=== PATIENT | male | born 1940 | race Caucasian/White ===

== ENCOUNTER 2023-09-07 13:17 | Emergency (ER) | payer OTHER, SELFPAY ==
[2023-09-07 13:29] VITALS: BP 153/98
[2023-09-07 17:40] VITALS: BP 154/99
--- NOTE | 2023-09-07 17:45 | ED.GENMED ---
History of Present Illness
<Josette Mcfadden MD - Last Filed: 09/07/23 17:47>
General
Chief Complaint: DVT/Possible Blood Clot
Time Seen by Provider: 09/07/23 16:26
Travel History
Have you had any contact with someone who has COVID-19?: No
Do you have any symptoms of coronavirus? Fever > 100 degrees, chills, cough, shortness of breath, sore throat, loss of taste or smell, muscle aches, or headache?: No
<Scooby Rodriguez PA-C - Last Filed: 09/07/23 18:51>
History of Present Illness
History of Present Illness:
83-year-old male with history of dementia, atrial fibrillation on Eliquis, and GERD presents to the emergency department for evaluation of left leg swelling and 'coldness' beginning today. Was advised to come to the emergency department by his
palliative care team. Patient does have chronic bilateral lower extremity edema but the left side appears to be worse according to family. History cannot be obtained from the patient due to his dementia. He denies any pain at this time
Past History
<Josette Mcfadden MD - Last Filed: 09/07/23 17:47>
Past History
ED Past Medical History: Other (A. fib, hypertension, spinal stenosis, scoliosis)
ED Past Surgical History: Other (Hernia)
<Scooby Rodriguez PA-C - Last Filed: 09/07/23 18:51>
Review of Systems
Allergies reviewed?: Yes
All Other Systems: ROS reviewed and negative except as documented in HPI and ROS
<Scooby Rodriguez PA-C - Last Filed: 09/07/23 18:51>
Physical Exam
Physical Exam:
GEN: Well appearing, NAD, WDWN
HEENT: Oral mucosa moist, no scleral icterus
Cardiac: Regular rate
Lung: No respiratory distress, no tachypnea
MSK: Bilateral lower extremity edema is noted, somewhat increased on the left. Dorsalis pedis pulses are 2+ bilaterally, posterior tibialis pulses strong by Doppler bilaterally, no pallor. Left lower extremity sensation is intact in all ghosh
Skin: Good color, no pallor or jaundice, no rashes
Neuro: AO x3, moves all extremities freely
Psych: Calm, cooperative
Course
<Josette Mcfadden MD - Last Filed: 09/07/23 17:47>
Orders/Labs/Results
Orders:
Orders
09/07/23 13:28
Periph Venous Lwr Ext Left US [US Periph Venous LOWER Ext LT] Urgent
Comment:
Reason For Exam: r/o dvt
09/07/23 17:35
Basic Metabolic Panel Urgent
Abnormal Lab Results
09/07/23
17:35
Sodium 134 L mmol/L
(135-145)
Calcium 8.2 L mg/dl
(8.4-10.2)
09/07/23 17:35
Vital Signs
Initial and Last Documented VS:
Initial Vital Signs
Temp Pulse Resp BP Pulse Ox
97.9 F 79 19 153/98 97
09/07/23 13:29 09/07/23 13:29 09/07/23 13:29 09/07/23 13:29 09/07/23 13:29
Last Documented Vital Signs
Temp Pulse Resp BP Pulse Ox
97.9 F 84 16 154/99 97
09/07/23 13:29 09/07/23 17:40 09/07/23 17:40 09/07/23 17:40 09/07/23 17:40
<Scooby Rodriguez PA-C - Last Filed: 09/07/23 18:51>
Orders/Labs/Results
Orders:
Orders
09/07/23 13:28
Periph Venous Lwr Ext Left US [US Periph Venous LOWER Ext LT] Urgent
Comment:
Reason For Exam: r/o dvt
09/07/23 17:35
Basic Metabolic Panel Urgent
Abnormal Lab Results
09/07/23
17:35
Sodium 134 L mmol/L
(135-145)
Calcium 8.2 L mg/dl
(8.4-10.2)
09/07/23 17:35
Vital Signs
Initial and Last Documented VS:
Initial Vital Signs
Temp Pulse Resp BP Pulse Ox
97.9 F 79 19 153/98 97
09/07/23 13:29 09/07/23 13:29 09/07/23 13:29 09/07/23 13:29 09/07/23 13:29
Last Documented Vital Signs
Temp Pulse Resp BP Pulse Ox
97.9 F 84 16 154/99 97
09/07/23 13:29 09/07/23 17:40 09/07/23 17:40 09/07/23 17:40 09/07/23 17:40
<Scooby Rodriguez PA-C - Last Filed: 09/07/23 18:51>
MDM/Problems Addressed
MDM/Problems Addressed:
Vascular ultrasound unremarkable. The patient has no clinical symptoms of arterial occlusion or peripheral arterial disease as he has no pain, no claudication, and strong dorsalis pedis pulses. Suspect the symptoms are on the basis of dependent
edema given that he is quite sedentary. Will start on low-dose diuretics with supplemental potassium given the low normal potassium levels.
<Scooby Rodriguez PA-C - Last Filed: 09/07/23 18:51>
*Critical Care Note
Total Time (30-74mins, 75-104mins- exclusive of procedures): Not Applicable
ED Attending Note
<Josette Mcfadden MD - Last Filed: 09/07/23 17:47>
ED Attending Note
Patient seen and examined by attending physician: Yes
I performed the substantive portion of visit, reviewed & personally made and approve the management plan that is documented in note by myself or DAMIAN.: Yes
ED Attending Note:
83 yr old with reported L ankle swelling and cold to touch. On exam, DP pulses noted bilat, no cyanosis/pallor/cold to touch. FROM, no calf ttp, no skin changes such as warmth/erythema/fluctuance/crepitus. US neg for DVT. Swelling is 2+ bilat le
edmea, symettric, already elevation and compression stockings, may need to diuretic.
-
Portions of this chart may have been created with voice recognition software.� Occasional wrong word or��sound alike� substitutions may have occurred due to the inherent limitations of voice recognition software.
Discharge Plan
Departure
Patient Disposition: Home (Routine Discharge)
Date of Disposition: 09/07/23
Time of Disposition: 17:53
Patient with high blood pressure during this ER visit?: Yes
Discharge Problem:
Bilateral leg edema
Instructions: Dependent Edema (DC)
Prescriptions:
New
furosemide [Lasix] 20 mg tablet
20 mg PO DAILY PRN (Reason: edema) Qty: 30 0RF
potassium chloride 10 mEq tablet extended release
10 meq PO BID PRN (Reason: on days when using lasix) Qty: 60 0RF
No Action
metoprolol succinate 100 mg Tablet Extended Release 24 Hr
100 mg PO DAILY
tamsulosin 0.4 mg Capsule
0.4 mg PO HS
Eliquis 5 mg Tablet
5 mg PO BID
pantoprazole 40 mg Tablet,Delayed Release (Dr/Ec)
40 mg PO DAILY
calcium polycarbophil [FiberCon] 625 mg Tablet
625 mg PO BID
finasteride 5 mg Tablet
5 mg PO DAILY
Centrum Silver Men [id number] mcg Tablet
1 tab PO DAILY
lidocaine 4 % Adhesive Patch,Medicated
1 patch topical DAILY Qty: 0 0RF
cefdinir 300 mg Capsule
300 mg PO Q12 11 Days Qty: 22 0RF
polyethylene glycol 3350 [HealthyLax] 17 gram Powder In Packet
17 g PO DAILY Qty: 0 0RF
acetaminophen [Pain Relief ES (acetaminophen)] 500 mg Tablet
1,000 mg PO QID Qty: 0 0RF
Referrals:
UNKNOWN - PT DOES,NOT KNOW [Unknown Provider] -
Activity Restrictions/Additional Instructions:
I will call in a prescription for diuretics based on the lab results. This may or may not include a potassium supplement
Use this daily as needed for leg swelling
See his primary care physician for follow up in 1 week
Interventions
Interventions:
*Risk Screen - Suicide Last Done: 09/07/23 13:25
*General Assessment Last Done: 09/07/23 13:25
*Neglect/Abuse Screening Last Done: 09/07/23 13:25
ED- Fall Risk Assessment Last Done: 09/07/23 17:15
*Nursing Disposition Last Done: 09/07/23 18:14
ED- Cardiac Assessment Last Done: 09/07/23 17:15
ED- Pulmonary Assessment Last Done: 09/07/23 17:15
ED-Peripheral Vascular Assessment Last Done: 09/07/23 17:15
ED-Skin Assessment Last Done: 09/07/23 17:15
Discharge Date and Time
Discharge Date/Time: 09/07/23 18:14
[2023-09-07 18:13] LABS: Blood Urea Nitrogen 16 mg/dl (9-20); Calcium 8.2 mg/dl (8.4-10.2); Carbon Dioxide 28 mmol/L (22-30); Chloride 103 mmol/L (98-107); Glucose 87 mg/dl (70-99); Potassium 3.6 mmol/L (3.5-5.1); Sodium 134 mmol/L (135-145); eGFR > 60.00
== END 2023-09-07 18:14 | disposition home or self-care (01) ==
LOC: EMR 13:17
PROVIDERS: Physician Assistant; EMERGENCY PHYSICIAN Emergency Medicine; FAMILY PHYSICIAN Internal Medicine
DX: R22.43 Localized swelling, mass and lump, lower limb, bilateral (principal); I10 Essential (primary) hypertension; Z79.01 Long term (current) use of anticoagulants
CPT/HCPCS: 99284; 80048; 93971

== ENCOUNTER → 2023-09-11 14:21 | Outpatient (REF) | payer OTHER, SELFPAY ==
[2023-09-11 15:17] LABS: Body Fluid Mononuclear 14.7 %; Body Fluid Polymorphonuclear 85.3 %; Body Fluid WBC 25470 /CUMM
[2023-09-11 15:22] LABS: Body Fluid Second Tech AMA
== END ==
LOC: REG 14:21
PROVIDERS: ATTENDING PHYSICIAN Physician Assistant Surgical; FAMILY PHYSICIAN Internal Medicine
DX: M25.561 Pain in right knee (principal)
CPT/HCPCS: 89051; 89060

== ENCOUNTER → 2023-09-17 10:31 | Outpatient (REF) | payer OTHER, SELFPAY ==
[2023-09-17 11:30] LABS: Urine Albumin Trace (Neg - Trace); Urine Bilirubin Negative (Negative); Urine Character Very Cloudy (Clear); Urine Color Yellow; Urine Glucose Negative (Negative); Urine Ketone Trace (Negative); Urine Leukocyte 2+ (Negative); Urine Nitrite Positive (Negative); Urine Occult Blood 4+ (Negative); Urine Specific Gravity 1.025 (<1.030); Urine Urobilinogen Negative (Neg - 1+)
[2023-09-17 11:54] LABS: Urine White Cell 40-50 /HPF (0-5)
[2023-09-17 11:55] LABS: Urine Bacteria Few (Negative)
== END ==
LOC: OLABN 10:31
PROVIDERS: ATTENDING PHYSICIAN Student in an Organized Health Care Education/Training Program
DX: R45.1 Restlessness and agitation (principal)
CPT/HCPCS: 36415; 81003; 81015; 87086; 87088; 87186

== ENCOUNTER → 2023-09-22 10:21 | Outpatient (REF) | payer OTHER, SELFPAY ==
[2023-09-22 10:56] LABS: % Basophils 0.6 % (0-2); % Eosinophils 2.3 % (0-6); % Immature Granulocytes 2.2 % (0-0.5); % Lymphocytes 14.3 % (20.5-51.1); % Monocytes 7.2 % (1.7-9.3); % Neutrophils 73.4 % (42.2-75.2); Absolute Basophils 0.1 10^3/uL (0-0.2); Absolute Eosinophils 0.2 10^3/uL (0-0.7); Absolute Immature Granulocytes 0.2 10^3/uL (0-0.05); Absolute Lymphocytes 1.5 10^3/uL (1.2-3.4); Absolute Monocytes 0.8 10^3/uL (0.1-0.6); Absolute Neutrophils 7.8 10^3/uL (1.4-6.5); Hematocrit 39.8 % (39.0-52.0); Hemoglobin 12.7 g/dL (13.0-18.0); Mean Corp Hgb Conc. 31.9 g/dL (33.0-37.0); Mean Corpuscular Hgb 30.5 pg (27.0-31.0); Mean Corpuscular Volume 95.4 fL (80.0-94.0); Mean Platelet Volume 9.9 fL (7.4-10.4); Nucleated Red Blood Cells % 0 % (-); Platelet Count 321 10^3/uL (130-400); Red Blood Cell Count 4.17 10^6/uL (4.70-6.10); Red Cell Dist. Width 13.5 % (11.5-14.5); White Blood Cell Count 10.6 10^3/uL (4.8-10.8)
[2023-09-22 11:08] LABS: ALT (SGPT) 25 U/L (0-50); AST (SGOT) 20 U/L (17-59); Albumin 2.7 g/dl (3.5-5.0); Alkaline Phosphatase 75 U/L (38-126); Blood Urea Nitrogen 30 mg/dl (9-20); Calcium 8.5 mg/dl (8.4-10.2); Carbon Dioxide 25 mmol/L (22-30); Chloride 105 mmol/L (98-107); Glucose 91 mg/dl (70-99); Magnesium 2.3 mg/dl (1.6-2.3); Potassium 4.2 mmol/L (3.5-5.1); Sodium 137 mmol/L (135-145); Total Bilirubin 0.7 mg/dl (0.2-1.3); Total Protein 5.1 g/dl (6.3-8.2); eGFR > 60.00
[2023-09-22 11:37] LABS: TSH 0.83 uIU/ml (0.47-4.68)
== END ==
LOC: OLABN 10:21
PROVIDERS: ATTENDING PHYSICIAN Student in an Organized Health Care Education/Training Program
DX: F02.811 Dementia in other diseases classified elsewhere, unspecified severity, with agitation (principal); N40.1 Benign prostatic hyperplasia with lower urinary tract symptoms; E03.9 Hypothyroidism, unspecified; I10 Essential (primary) hypertension
CPT/HCPCS: 36415; 80053; 83735; 84443; 85025

== ENCOUNTER → 2023-10-14 11:05 | Outpatient (REF) | payer OTHER, SELFPAY ==
[2023-10-14 12:28] LABS: Urine Albumin 1+ (Neg - Trace); Urine Bilirubin Negative (Negative); Urine Character Slightly Cloudy (Clear); Urine Color Yellow; Urine Glucose Negative (Negative); Urine Ketone Trace (Negative); Urine Leukocyte 2+ (Negative); Urine Nitrite Positive (Negative); Urine Occult Blood 4+ (Negative); Urine Specific Gravity 1.025 (<1.030); Urine Urobilinogen Negative (Neg - 1+)
[2023-10-14 12:56] LABS: Urine Bacteria Moderate (Negative); Urine Calcium Oxalate Crystals Present; Urine Red Blood Cell 60-70 /HPF (0-2); Urine White Cell >100 /HPF (0-5)
== END ==
LOC: OLABN 11:05
PROVIDERS: ATTENDING PHYSICIAN Student in an Organized Health Care Education/Training Program
DX: R82.90 Unspecified abnormal findings in urine (principal)
CPT/HCPCS: 81003; 81015; 87077; 87086; 87186

== ENCOUNTER → 2023-12-01 10:43 | Outpatient (REF) | payer OTHER, SELFPAY ==
[2023-12-01 11:32] LABS: % Basophils 0.4 % (0-2); % Eosinophils 2.3 % (0-6); % Immature Granulocytes 1.3 % (0-0.5); % Lymphocytes 15.6 % (20.5-51.1); % Monocytes 6.6 % (1.7-9.3); % Neutrophils 73.8 % (42.2-75.2); Absolute Basophils 0.1 10^3/uL (0-0.2); Absolute Eosinophils 0.3 10^3/uL (0-0.7); Absolute Immature Granulocytes 0.2 10^3/uL (0-0.05); Absolute Lymphocytes 1.9 10^3/uL (1.2-3.4); Absolute Monocytes 0.8 10^3/uL (0.1-0.6); Absolute Neutrophils 9.1 10^3/uL (1.4-6.5); Hematocrit 39.2 % (39.0-52.0); Hemoglobin 12.8 g/dL (13.0-18.0); Mean Corp Hgb Conc. 32.7 g/dL (33.0-37.0); Mean Corpuscular Hgb 30.2 pg (27.0-31.0); Mean Corpuscular Volume 92.5 fL (80.0-94.0); Mean Platelet Volume 9.8 fL (7.4-10.4); Nucleated Red Blood Cells % 0 % (-); Platelet Count 255 10^3/uL (130-400); Red Blood Cell Count 4.24 10^6/uL (4.70-6.10); Red Cell Dist. Width 14.7 % (11.5-14.5); White Blood Cell Count 12.3 10^3/uL (4.8-10.8)
[2023-12-01 11:58] LABS: ALT (SGPT) 10 U/L (0-50); AST (SGOT) 17 U/L (17-59); Albumin 2.9 g/dl (3.5-5.0); Alkaline Phosphatase 67 U/L (38-126); Blood Urea Nitrogen 19 mg/dl (9-20); Calcium 8.7 mg/dl (8.4-10.2); Carbon Dioxide 23 mmol/L (22-30); Chloride 107 mmol/L (98-107); Glucose 76 mg/dl (70-99); Potassium 3.9 mmol/L (3.5-5.1); Sodium 140 mmol/L (135-145); Total Bilirubin 0.5 mg/dl (0.2-1.3); Total Protein 5.2 g/dl (6.3-8.2); eGFR > 60.00
[2023-12-01 12:12] LABS: Urine Albumin 1+ (Neg - Trace); Urine Bilirubin Negative (Negative); Urine Character Slightly Cloudy (Clear); Urine Color Yellow; Urine Glucose Negative (Negative); Urine Ketone Trace (Negative); Urine Leukocyte 2+ (Negative); Urine Nitrite Positive (Negative); Urine Occult Blood 4+ (Negative); Urine Specific Gravity 1.015 (<1.030); Urine Urobilinogen Negative (Neg - 1+)
[2023-12-01 13:12] LABS: Urine Bacteria Few (Negative); Urine Red Blood Cell 80-90 /HPF (0-2); Urine Squamous Cell 0-2 /LPF (Few); Urine White Cell 70-80 /HPF (0-5)
== END ==
LOC: OLABN 10:43
PROVIDERS: ATTENDING PHYSICIAN Student in an Organized Health Care Education/Training Program
DX: R82.90 Unspecified abnormal findings in urine (principal); R45.1 Restlessness and agitation; Z87.440 Personal history of urinary (tract) infections
CPT/HCPCS: 36415; 80053; 81003; 81015; 85025; 87077; 87086; 87186

== ENCOUNTER → 2023-12-10 10:47 | Outpatient (REF) | payer OTHER, SELFPAY ==
[2023-12-10 11:42] LABS: Urine Albumin 2+ (Neg - Trace); Urine Bilirubin 1+ (Negative); Urine Character Very Cloudy (Clear); Urine Color Brown; Urine Glucose Negative (Negative); Urine Ketone 1+ (Negative); Urine Leukocyte 2+ (Negative); Urine Nitrite Positive (Negative); Urine Occult Blood 4+ (Negative); Urine Urobilinogen 1+ (Neg - 1+)
[2023-12-10 12:23] LABS: Urine Bacteria Many (Negative); Urine Red Blood Cell >100 /HPF (0-2); Urine Squamous Cell 0-2 /LPF (Few); Urine White Cell 40-50 /HPF (0-5)
== END ==
LOC: OLABN 10:47
PROVIDERS: ATTENDING PHYSICIAN Student in an Organized Health Care Education/Training Program
DX: R35.0 Frequency of micturition (principal)
CPT/HCPCS: 36415; 81003; 81015; 87077; 87086; 87186

== ENCOUNTER → 2023-12-21 09:21 | Outpatient (REF) | payer OTHER, SELFPAY ==
[2023-12-21 11:09] LABS: HDL Cholesterol 43 mg/dl; LDL Cholesterol, Calculated 82 mg/dl; Total Cholesterol 145 mg/dl (50-199); Triglyceride 100 mg/dl (10-149); Very Low Density Lipoprotein 20 mg/dl (0-30)
[2023-12-21 13:33] LABS: Glycohemoglobin (HgbA1c) 5.5 % (4.0-5.6)
== END ==
LOC: OLABN 09:21
PROVIDERS: ATTENDING PHYSICIAN Student in an Organized Health Care Education/Training Program
DX: E78.6 Lipoprotein deficiency (principal); E16.2 Hypoglycemia, unspecified
CPT/HCPCS: 36415; 80061; 83036

== ENCOUNTER → 2023-12-28 09:18 | Outpatient (REF) | payer OTHER, SELFPAY ==
[2023-12-28 11:16] LABS: Urine Albumin Negative (Neg - Trace); Urine Bilirubin Negative (Negative); Urine Character Clear (Clear); Urine Color Yellow; Urine Glucose Negative (Negative); Urine Ketone Trace (Negative); Urine Leukocyte Trace (Negative); Urine Nitrite Negative (Negative); Urine Occult Blood Negative (Negative); Urine Specific Gravity 1.015 (<1.030); Urine Urobilinogen Negative (Neg - 1+)
[2023-12-28 11:53] LABS: Urine Red Blood Cell 0-2 /HPF (0-2)
== END ==
LOC: OLABN 09:18
PROVIDERS: ATTENDING PHYSICIAN Student in an Organized Health Care Education/Training Program
DX: R35.0 Frequency of micturition (principal)
CPT/HCPCS: 81003; 81015; 87086